=== PATIENT | female | born 2000 | race Caucasian/White ===

== ENCOUNTER 2018-05-06 09:37 | Emergency (ER) | payer MEDICAID, OTHER ==
[2018-05-06] MEDS ORDERED: NS 0.9% 1000 ML* 1,000 ML IV ONE (10:21)
--- NOTE | 2018-05-06 10:37 | ED ---
Throat Pain/Nasal Congestion - HPI Summary HPI Summary: Pt is a 18 y/o female who presents to the ED c/o sore throat since yesterday. She c/o dizziness, N/V, hot flashes, sore throat, cough, and congestion. Pt denies any dysuria, fever, diarrhea, or ear pain. She is currently 28 weeks and feels movement. This is her second and her due date is 07/25/18. She denies any recent exposure to somebody sick, and did not get her flu shot for this season. Pt denies any smoking. - History of Current Complaint Chief Complaint: EDFluSymptoms Time Seen by Provider: 05/06/18 10:15 Hx Obtained From: Patient Onset/Duration: Gradual Onset, Lasting Days - Yesterday, Still Present Associated Signs And Symptoms: Positive: Nasal Discharge Cough: Nonproductive - Allergies/Home Medications Allergies/Adverse Reactions: Allergies Allergy/AdvReac Type Severity Reaction Status Date / Time No Known Allergies Allergy Verified 05/06/18 09:38 PMH/Surg Hx/FS Hx/Imm Hx Endocrine/Hematology History: Denies: Hx Diabetes Cardiovascular History: Denies: Hx Hypertension - Surgical History Surgery Procedure, Year, and Place: None. Infectious Disease History: No Infectious Disease History: Denies: Traveled Outside the [place] in Last 30 Days - Family History Known Family History: Negative: Hypertension, Diabetes - Social History Alcohol Use: None Hx Substance Use: No Substance Use Type: Reports: None Hx Tobacco Use: No Smoking Status (MU): Never Smoked Tobacco Review of Systems Positive: Other - Hot flashes. Negative: Fever Positive: Sore Throat, Nasal Discharge - Congestion. Negative: Ear Ache Positive: Cough Positive: Vomiting, Nausea. Negative: Diarrhea Negative: dysuria Neurological: Other - Dizziness All Other Systems Reviewed And Are Negative: Yes Physical Exam - Summary Physical Exam Summary: Appearance: Well appearing, no pain distress Skin: warm, dry, reflects adequate perfusion Head/face: normal Eyes: EOMI, AMPARO, no nystagmus ENT: mucous membranes moist, clear nasal mucus, no lymphadenopathy Neck: supple, non-tender Respiratory: CTA, breath sounds present Cardiovascular: RRR, pulses symmetrical Abdomen: non-tender, soft, fundus palpable 6-7 cm above umbilicus Bowel Sounds: present Musculoskeletal: normal, strength/ROM intact Neuro: normal, sensory motor intact, A&Ox3 Triage Information Reviewed: Yes Vital Signs On Initial Exam: Initial Vitals Temp Pulse Resp BP Pulse Ox 98.5 F 120 16 144/96 100 05/06/18 09:38 05/06/18 09:38 05/06/18 09:38 05/06/18 09:38 05/06/18 09:38 Vital Signs Reviewed: Yes Diagnostics - Vital Signs Vital Signs Temp Pulse Resp BP Pulse Ox 05/06/18 09:38 98.5 F 120 16 144/96 100 - Laboratory Lab Statement: Any lab studies that have been ordered have been reviewed, and results considered in the medical decision making process. Re-Evaluation - Re-Evaluation First Eval Re-Evaluation Time: 10:55 Change: Unchanged Comment: heart tone is 120. EENT Course/Dx - Course Course Of Treatment: 28 week female with cough, congestion and sore throat. No fever. Tachycardic here. Improved with IV fluids, Decadron. Treat symptomatically and follow-up with [facility]. - Differential Diagnoses Differential Diagnoses: Influenza, Tonsilitis - Diagnoses Provider Diagnoses: URI (upper respiratory infection), Third trimester Discharge - Sign-Out/Discharge Documenting (check all that apply): Patient Departure - Discharge - Discharge Plan Condition: Improved Disposition: HOME Prescriptions: Guaifenesin/Pseudo 600/60(NF) [Mucinex D 600/60 (NF)] 1 tab PO BID #12 tab Patient Education Materials: Upper Respiratory Infection (ED) Forms: *Work Release Referrals: [facility] [Outside] Additional Instructions: Call Mary Kate [facility] to schedule prompt follow-up. Humidifier at the bedside. Avoid smokers and smoke. Return if worse, high fever, new symptoms or other concerns. Drink plenty of fluids. Vitamin C may help. - Billing Disposition and Condition Condition: IMPROVED Disposition: Home - Attestation Statements Document Initiated by Scribe: Yes Documenting Scribe: Amberly Auguste Provider For Whom Momo is Documenting (Include Credential): Abdulaziz Jung MD Scribe Attestation: Amberly Kaiser scrbreanaed for Abdulaziz Jung MD on 05/06/18 at 1528. Scribe Documentation Reviewed: Yes Provider Attestation: The documentation as recorded by the Amberly [email or web address] accurately reflects the service I personally performed and the decisions made by me, Abdulaziz Jung MD
[2018-05-06] MEDS ORDERED: Dexamethasone IV* 4 MG/ML 1 ML (4 MG) IV SLOW PU ONE (11:05)
[2018-05-06 11:26] VITALS: BP 103/65
== END 2018-05-06 11:28 | disposition home or self-care (01) ==
LOC: ED 09:37
DX: O98.513 Other viral diseases complicating pregnancy, third trimester (principal); J11.1 Influenza due to unidentified influenza virus with other respiratory manifestations; J03.90 Acute tonsillitis, unspecified; Z3A.28 28 weeks gestation of pregnancy
CPT/HCPCS: 87651; 96361; 96374; 99282; J1100